=== PATIENT | male | born 1965 ===

== ENCOUNTER 2019-01-08 00:16 | Emergency (ER) | payer SELFPAY ==
[2019-01-08 00:25] VITALS: RESP 16
--- NOTE | 2019-01-08 00:57 | ED PDOC ---
HPI: Psych/Substance Abuse Time Seen by Provider: 01/08/19 00:31 Chief Complaint (Nursing): Alcohol Ingestion Chief Complaint (Provider): Alcohol Ingestion ED Caveat: Intoxicated History Per: Patient History/Exam Limitations: intoxication Modifying Factor(s): Alcohol Additional Complaint(s): 53 y/o male was brought to the ED by EMS for alcohol intoxication. Patient was witnessed walking with an unsteady gait. Patient states that he fell and hit his head. History is limited due to patient's intoxicated state. Past Medical History Reviewed: Vital Signs, Unable To Obtain Vital Signs: Last Vital Signs Temp 97 F L 01/08/19 00:22 Pulse 100 H 01/08/19 00:22 Resp 16 01/08/19 00:22 BP 141/85 01/08/19 00:22 Pulse Ox 97 01/08/19 00:22 - Medical History PMH: HTN, Hypercholesterolemia - Surgical History Surgical History: Appendectomy - Family History Family History: States: Unknown Family Hx - Immunization History Hx Tetanus Toxoid Vaccination: Yes Hx Influenza Vaccination: Yes Hx Pneumococcal Vaccination: Yes - Home Medications Home Medications: Ambulatory Orders Medication Instructions Recorded Benzocaine/Menthol [Cepacol Sore 1 rosaura MM Q2 #30 rosaura 12/12/17 Throat] - Allergies Allergies/Adverse Reactions: Allergies Allergy/AdvReac Type Severity Reaction Status Date / Time No Known Allergies Allergy Verified 01/08/19 00:24 Review of Systems Review Of Systems: ROS cannot be obtained secondary to pt's inabilty to answer questions. Physical Exam - Reviewed Nursing Documentation Reviewed: Yes Vital Signs Reviewed: Yes - Physical Exam Appears: Positive for: Well, Non-toxic, No Acute Distress Head Exam: Negative for: ATRAUMATIC (abrasion to upper forehead) Skin: Positive for: Normal Color, Warm, DRY Eye Exam: Positive for: EOMI, Normal appearance, PERRL ENT: Positive for: Normal ENT Inspection Neck: Positive for: Normal, Painless ROM Cardiovascular/Chest: Positive for: Regular Rate, Rhythm. Negative for: Murmur Respiratory: Positive for: Normal Breath Sounds. Negative for: Respiratory Distress Gastrointestinal/Abdominal: Positive for: Normal Exam, Soft. Negative for: Tenderness Extremity: Positive for: Normal ROM (all extremities including right wrist), Other (abrasion to right wrist but full ROM of wrist and hand is andres rovascularlly intact). Negative for: Pedal Edema, Deformity Neurologic/Psych: Positive for: Alert, Oriented. Negative for: Motor/Sensory Deficits - Laboratory Results Result Diagrams: 01/08/19 01:25 01/08/19 01:25 - ECG O2 Sat by Pulse Oximetry: 97 (RA) Pulse Ox Interpretation: Normal Medical Decision Making Medical Decision Making: Time: A/P: 53 y/o with alcohol intoxication and head injury. Will need imaging. Will observe until sober. 00:50 Patient attempted to strike his in the ER. Patient is not redirectible. He is requiring both physical and chemical sedation at this time. \ 03:00 Patient attempting to get out of bed Ativan 2mg IM ordered 05:54 CT Head Normal size of the ventricles and extra-axial spaces for the patient's age. Normal white matter tracts of the supratentorial brain. Normal basal ganglia and thalami. Normal brainstem. Normal cerebellum. There is no demonstrated extra-axial, intraparenchymal, or intraventricular hemorrhage. There are no findings of an acute ischemic infarction. Normal calvarium. There is no demonstrated fracture. Normal soft tissue structures. Normal visualized paranasal sinuses. Chronic chronic meningeal calcifications are noted. IMPRESSION: Normal unenhanced CT scan of the brain. 06:04 CT C Spine Findings: There are diffuse spondylotic changes. Findings are demonstrated by disc space narrowing, osteophyte formation and degenerative endplate changes. Facet joint arthropathy is noted. No fracture or dislocation is seen. No aggressive bone lesion is noted. Multilevel degenerative disc disease most prominent from C3-C7. Impression: Spondylosis. Multilevel facet joint arthropathy. No acute bone pathology. 07:00 Patient care endorsed to Dr. Quezada pending clinical sobriety. Scribe Attestation: Documented by Joes C Smith acting as a scribe for Eliseo Cantrell MD. Provider Scribe Attestation: All medical record entries made by the Scribe were at my direction and personally dictated by me. I have reviewed the chart and agree that the record accurately reflects my personal performance of the history, physical exam, medical decision making, and the department course for this patient. I have also personally directed, reviewed, and agree with the discharge instructions and disposition. Disposition - Clinical Impression Clinical Impression: Alcohol abuse - Patient ED Disposition Is Patient to be Admitted: Transfer of Care - Disposition Disposition: Transfer of Care Disposition Time: 07:00 Condition: STABLE Forms: [employer] (Uzbek) Patient Signed Over To: Luz Elena Quezada Handoff Comments: pending sobriety
[2019-01-08 02:27] LABS: BASO % 0.6 % (0.0-2.0); EOS # 0.1 K/uL (0.0-0.7); EOS % 0.8 % (0.0-4.0); HEMOGLOBIN 14.9 g/dL (12.0-18.0); LYMPH # 2.3 K/uL (1.0-4.3); LYMPH % 35.1 % (20.0-40.0); MEAN CELL VOLUME 95.2 fl (80.0-94.0); MEAN CORPUSCULAR HEMOGLOBIN 32.8 pg (27.0-31.0); MEAN CORPUSCULAR HGB CONC 34.4 g/dL (33.0-37.0); MEAN PLATELET VOLUME 7.9 fl (7.2-11.7); MONO # 0.4 K/uL (0.0-0.8); MONO % 6.5 % (0.0-10.0); NEUT # 3.7 K/uL (1.8-7.0); NRBC % 0.1 % (0.0-0.0); RBC 4.54 Mil/uL (4.40-5.90); RED CELL DISTRIBUTION WIDTH 12.4 % (11.5-14.5); WHITE BLOOD COUNT 6.5 K/uL (4.8-10.8)
[2019-01-08 02:41] LABS: ACETAMINOPHEN < 10.0 ug/ml (10.0-30.0); SALICYLATE < 1.0 mg/dl
[2019-01-08 02:57] LABS: BLOOD UREA NITROGEN 13 mg/dl (9-20); CALCIUM 9.8 mg/dL (8.4-10.2); GFR NON-AFRICAN AMERICAN > 60
[2019-01-08 06:57] LABS: VENOUS BLOOD GAS BASE EXCESS -1.6 mmol/L (0.0-2.0); VENOUS BLOOD GAS PCO2 52 mmHg (40-60); VENOUS BLOOD GAS PO2 32 mm/Hg (30-55)
[2019-01-08] MEDS ORDERED: Sodium Chloride 0.9% 1,000 ML IV STA ×2 (06:58→08:16)
--- NOTE | 2019-01-08 07:04 | ED PDOC ---
- Laboratory Results Result Diagrams: 01/08/19 01:25 01/08/19 01:25 Lab Results: pO2 32 mm/Hg (30-55) 01/08/19 06:54 VBG pH 7.30 (7.32-7.43) L 01/08/19 06:54 VBG pCO2 52 mmHg (40-60) 01/08/19 06:54 VBG HCO3 22.5 mmol/L 01/08/19 06:54 VBG Total CO2 27.2 mmol/L (22-28) 01/08/19 06:54 VBG O2 Sat (Calc) 61.5 % (40-65) 01/08/19 06:54 VBG Base Excess -1.6 mmol/L (0.0-2.0) L 01/08/19 06:54 VBG Potassium 4.5 mmol/L (3.6-5.2) 01/08/19 06:54 Sodium 136.0 mmol/L (132-148) 01/08/19 06:54 Chloride 105.0 mmol/L (98-107) 01/08/19 06:54 Glucose 284 mg/dL (75-110) H 01/08/19 06:54 Lactate 4.3 mmol/L (0.7-2.1) H* 01/08/19 06:54 FiO2 21.0 % 01/08/19 06:54 Crit Value Called To Dr nina sanabria 01/08/19 06:54 Crit Value Called By Tyson 01/08/19 06:54 Crit Value Read Back Y 01/08/19 06:54 Blood Gas Notified Time 657 01/08/19 06:54 - ECG O2 Sat by Pulse Oximetry: 97 (RA) Medical Decision Making Medical Decision Making: Time: 0700 --Patient endorsed to provider by Dr. Sanabria, pending repeat VBG after fluids then re-assessment. Time: 55 --Lactate improved after fluids. Upon provider reevaluation, patient is clinically sober, alert and orientedx3, medically stable, and tolerating PO. is present in room to take patient home. Counseling was provided and all questions were answered regarding diagnosis. Advised to follow up with PCP. There is agreement to discharge plan. Return perameters discussed. Clinical Impression: Alcohol abuse Scribe Attestation: Documented by Jyoti Sheppard, acting as a scribe for Luz Elena Quezada MD. Provider Scribe Attestation: All medical record entries made by the Scribe were at my direction and personally dictated by me. I have reviewed the chart and agree that the record accurately reflects my personal performance of the history, physical exam, medical decision making, and the department course for this patient. I have also personally directed, reviewed, and agree with the discharge instructions and disposition. Disposition Counseled Patient/Family Regarding: Studies Performed, Diagnosis - Clinical Impression Clinical Impression: Alcohol abuse - POA Present On Arrival: None - Disposition Referrals: Alcoholics Anonymous [Outside] Disposition: Routine/Home Disposition Time: 09:55 Condition: IMPROVED Instructions: Alcohol Use - When Is Drinking a Problem?, Alcohol Abuse and Alcoholism (DC) Forms: [employer] (Turkmen) Print Language: [place]
--- NOTE | 2019-01-08 08:39 | CT ---
Date of service: 01/08/2019 PROCEDURE: CT HEAD WITHOUT CONTRAST. HISTORY: intox, head injury COMPARISON: None available. TECHNIQUE: Axial computed tomography images were obtained through the head/brain without intravenous contrast. Radiation dose: Total exam DLP = 1241.51 mGy-cm. This CT exam was performed using one or more of the following dose reduction techniques: Automated exposure control, adjustment of the mA and/or kV according to patient size, and/or use of iterative reconstruction technique. FINDINGS: HEMORRHAGE: No intracranial hemorrhage. BRAIN: Cho-white matter differentiation is preserved. There is no mass, mass effect or abnormal extra-axial fluid collection. There is no territorial infarction. The midline sagittal structures are normal. VENTRICLES: The ventricles are normal in size, shape and configuration. CALVARIUM: There is no calvarial fracture or extracranial soft tissue swelling. PARANASAL SINUSES: Predominantly clear. MASTOID AIR CELLS: Predominantly clear. OTHER FINDINGS: None. IMPRESSION: No acute intracranial abnormality. A preliminary report was provided by [employer].
[2019-01-08 09:36] LABS: VENOUS BLOOD GAS BASE EXCESS -0.6 mmol/L (0.0-2.0); VENOUS BLOOD GAS PCO2 58 mmHg (40-60); VENOUS BLOOD GAS PO2 28 mm/Hg (30-55); VENOUS BLOOD PH 7.28 (7.32-7.43)
[2019-01-08 09:51] LABS: URINE BILIRUBIN NEGATIVE (NEGATIVE); URINE BLOOD NEGATIVE (NEGATIVE); URINE CLARITY SLIGHTY-CLOUDY (Clear); URINE COLOR YELLOW (YELLOW); URINE GLUCOSE (UA) >=500 mg/dL (NEGATIVE); URINE HYALINE CAST 0-2 /hpf (0-2); URINE LEUKOCYTE ESTERASE NEG Leu/uL (Negative); URINE PROTEIN 30 mg/dL (NEGATIVE); URINE UROBILINOGEN 0.2-1.0 mg/dL (0.2-1.0)
[2019-01-08 10:14] VITALS: BP 135/80; PULSE 81; TEMP 98.1; O2SAT 99
--- NOTE | 2019-01-08 11:35 | CT ---
Date of service: 01/08/2019 PROCEDURE: CT Cervical Spine without contrast HISTORY: intox, head injury COMPARISON: None available. TECHNIQUE: Axial computed tomography images were obtained of the cervical spine without the use of intravenous contrast. Coronal and sagittal reformatted images were created and reviewed. Radiation dose: Total exam DLP = 414.39 mGy-cm. This CT exam was performed using one or more of the following dose reduction techniques: Automated exposure control, adjustment of the mA and/or kV according to patient size, and/or use of iterative reconstruction technique. FINDINGS: VERTEBRAE: There is normal alignment of the cervical vertebral bodies. There is normal cervical lordosis. There is no acute vertebral body fracture. There is no traumatic anterior listhesis. There is an os ossific density superior to the superior articular facet of T1. The craniocervical junction is normal. The atlantoaxial joint is normal. DISCS/SPINAL CANAL/NEURAL FORAMINA: There is multilevel degenerative disc disease due to combination of disc osteophyte complexes, uncovertebral joint hypertrophy and multilevel left facet arthropathy with multilevel left-sided moderate to severe neural foraminal narrowing without spinal canal stenosis. Discs heights are grossly preserved. PARASPINAL SOFT TISSUES: The paraspinous soft tissues are normal. No prevertebral soft tissue thickening. OTHER FINDINGS: No apical pneumothorax. IMPRESSION: No acute vertebral body fracture or traumatic anterior listhesis. Small ossific density superior to the superior articular facet of T1 could represent hyperostosis however small avulsion fracture cannot be excluded. An MRI of the cervical spine without intravenous contrast is recommended for further evaluation. The final report is tagged to the PA review folder. A preliminary report was provided by [employer]. Important findings were discussed with CHYNA Motley on 01/08/2019 at 11:30 a.m.
== END 2019-01-08 10:13 | disposition home or self-care (01) ==
LOC: H.ER 00:16
DX: E78.00 Pure hypercholesterolemia, unspecified (principal); I10 Essential (primary) hypertension; Y90.8 Blood alcohol level of 240 mg/100 ml or more
CPT/HCPCS: 70450; 72125; 80048; 81003; 82803; 82948; 85025; 96360; 96372; 99285; G0480; J1630; J2060; J7030